=== PATIENT | female | born 1990 | race Caucasian/White ===

== ENCOUNTER → 2021-11-05 11:04 | Outpatient (CLI) | payer OTHER, SELFPAY ==
[2021-11-05 15:56] LABS: Cancer Antigen 125 115 U/mL (0-35)
[2021-11-06 09:00] LABS: Cancer (Carbohydrate) Ag 19-9 32 U/mL (0-35)
[2021-11-07 16:48] LABS: Human Epididymis Prot 4 35.1 pmol/L (0.0-61.2)
== END ==
PROVIDERS: PCP Family Medicine; Referring Provider Obstetrics & Gynecology; Visit Provider Obstetrics & Gynecology
DX: N83.8 Other noninflammatory disorders of ovary, fallopian tube and broad ligament (principal)
CPT/HCPCS: 36415; 82378; 86301; 86304; 86305